=== PATIENT | male | born 1985 | race Caucasian/White ===

== ENCOUNTER 2019-02-17 11:05 | Inpatient (IN) | payer OTHER ==
[~2019-02-17] VITALS: Ht 180.3 cm; Wt 85.3 kg
[2019-02-17 12:30] VITALS: BP 144/73; BMI 26.2
[2019-02-17 13:25] LABS: BASOPHILS 0 % (0-2); EOSINOPHILS 0.4 % (0-7); HEMATOCRIT 43.5 % (42.0-54.0); HEMOGLOBIN 15.7 g/dL (13.5-17.5); LYMPHOCYTES 21.8 % (15-50); MCH 29.7 pg (26.0-34.0); MCHC 36.1 g/dL (31.0-37.0); MCV 82.4 fL (80.0-100.0); MEAN PLATELET VOLUME 10.2 fL (7.4-10.4); MONOCYTES 8.4 % (2-11); NEUTROPHILS 69.4 % (40-80); PLATELET COUNT 158 10x3/uL (130-400); RBC 5.28 10x6/uL (4.20-6.10); RDW 12.4 % (11.5-14.5)
[2019-02-17 13:30] LABS: ALBUMIN 3.9 g/dL (3.4-5.0); ALKALINE PHOSPHATASE 33 U/L (46-116); ALT (SGPT) 30 U/L (10-68); BILIRUBIN - TOTAL 0.72 mg/dL (0.2-1.3); CALC OSMOLALITY 267 mosm/kg (275-300); CALCIUM 8.9 mg/dL (8.5-10.1); CARBON DIOXIDE 25.6 mmol/L (21.0-32.0); CHLORIDE - SERUM 99 mmol/L (98-107); GLUCOSE 100 mg/dL (74-106); POTASSIUM - SERUM 4.1 mmol/L (3.5-5.1); PROTEIN - SERUM 7.2 g/dL (6.4-8.2); SODIUM 134 mmol/L (136-145); UREA NITROGEN 12 mg/dL (7-18); eGFR NON AFRICAN AMERICAN 90 mL/min (90-120)
[2019-02-17 16:31] VITALS: BP 130/63
[2019-02-17 20:00] VITALS: BP 137/51
[2019-02-18] VITALS: BP 114/58
[2019-02-18 04:00] VITALS: BP 112/50
[2019-02-18 05:51] LABS: AMYLASE - SERUM 43 U/L (25-115); CREATINE KINASE 102 UL (21-232); LIPASE 158 U/L (73-393)
[2019-02-18 05:52] LABS: C-REACTIVE PROTEIN < 0.2 mg/dL (0.0-0.9)
--- NOTE | 2019-02-18 07:25 | NUR ---
ROUNDING DONE WITH PATIENT LAYING ON BACK WATCHING TV. DENIES NEEDS AT THIS TIME. ON ROOM AIR. LEFT AC PIV SEEN WITH D 5 1/2 NS INFUSING AT 75 CC/HR. NEED STOOL SAMPLE, PATIENT IS AWARE OF THIS.
[2019-02-18 07:58] VITALS: BP 129/63
--- NOTE | 2019-02-18 10:00 | NUR ---
UP FOR SHOWER, COMPLETE BED LINEN CHANGE DONE.
[2019-02-18 10:56] VITALS: Ht 180.3 cm; Wt 85.3 kg
[2019-02-18 12:09] VITALS: BP 131/69
--- NOTE | 2019-02-18 12:16 | NUR ---
PATIENT IS UP AD JASON, REFUSES SCD.
--- NOTE | 2019-02-18 12:47 | NUR ---
SITTING ON SIDE OF BED EATING LUNCH. DENIES NEEDS AT THIS TIME.
--- NOTE | 2019-02-18 14:50 | NUR ---
UP WALKING HALLWAY FOR DR REYNOSO.
[2019-02-18 15:33] VITALS: BP 128/64
[2019-02-18] MEDS ORDERED: DOXYCYCLINE HY100 M2 PO (15:36)
--- NOTE | 2019-02-18 15:42 | NUR ---
TEMP 100.7, TYLENOL GIVEN.
--- NOTE | 2019-02-18 15:42 | NUR ---
CALLED CHEO IN THE LAB TO HAVE HER COME DRAW THE LYME DX ANTIBODY BEFORE DISCHARGE.
--- NOTE | 2019-02-18 16:38 | NUR ---
VERBAL AND WRITTEN DISCHARGE INSTRUCTIONS GIVEN TO PATIENT AND . SALINE LOCK FROM IV CATH REMOVED WITH TIP INTACT. DISCHARGED HOME VIA WHEELCHAIR.
--- NOTE | 2019-02-18 16:40 | NUR ---
UNABLE TO OBTAIN STOOL PATIENT DID NOT REPORT A BOWEL MOVEMENT THIS SHIFT BEFORE DISCHARGE.
--- NOTE | 2019-02-19 12:44 | MORECARE ---
CASE MANAGEMENT DISCHARGE SUMMARY PATIENT: MARTINA TO UNIT: [id number] ADM DATE: 02/17/19 AGE: 33 : 81 SEX: M ROOM/BED: D.1203 AUTHOR: YANIRA THRASHER PHYSICIAN: REFERRING PHYSICIAN: ESTELA GALLEGO MD DATE OF SERVICE: 02/19/19 Discharge Plan Patient Name: [facility]ARTINA [facility] : 1985 Planned Disposition: Anticipated Discharge Date: Discharge Date: 02/18/2019 Expected LOS: Initial Reviewer: [email or web address] Initial Review Date: 02/17/2019 Generated: 02/19/19 1:44 pm Patient Name: MARTINA TO Page [phone] at 1244 All edits/amendments must be made on the electronic document DICTATION DATE: 02/19/19 1244 [place] DRIVER: MAY 02/19/19 1244 RPT#: [id number] DC DATE:02/18/19 STATUS: DIS IN [facility] [address] [place] [address] END OF REPORT
[2019-02-21 16:09] LABS: ANCA - ANTIMYELOPEROXIDASE <9.0 U/mL (0.0-9.0); ANCA - ANTIPROTEINASE 3 <3.5 U/mL (0.0-3.5); ANCA - ATYPICAL <1:20 titer (Neg:<1:20); ANCA - CYTOPLASMIC <1:20 titer (Neg:<1:20); ANCA - PERINUCLEAR <1:20 titer (Neg:<1:20)
== END 2019-02-18 16:41 | disposition home or self-care (01) | DRG 864 ==
LOC: D.M3 11:05
PROVIDERS: Emergency Medicine; Internal Medicine Pulmonary Disease; ADMIT Family Medicine; ATTEND Family Medicine
DX: R50.9 Fever, unspecified (principal); E87.1 Hypo-osmolality and hyponatremia; R91.8 Other nonspecific abnormal finding of lung field; R53.83 Other fatigue; Z87.01 Personal history of pneumonia (recurrent); R63.4 Abnormal weight loss; Z68.26 Body mass index [BMI] 26.0-26.9, adult

== ENCOUNTER → 2019-02-22 18:33 | Outpatient (CLI) | payer OTHER ==
[2019-02-18 10:56] VITALS: BMI 26.2
[~2019-02-22 18:33] MED LIST: DOXYCYCLINE HY100 M2 PO
[2019-02-23 15:09] LABS: MONO NEGATIVE (NEGATIVE)
[2019-02-24 12:11] LABS: EBV - EARLY ANTIGEN AB IGG <9.0 U/mL (0.0-8.9); EBV - NUCLEAR ANTIGEN AB IGG 83.3 U/mL (0.0-17.9); EBV VIRAL CAPSID AB IGG 81.8 U/mL (0.0-17.9); EBV VIRAL CAPSID AB IGM <36.0 U/mL (0.0-35.9)
[2019-02-24 17:08] LABS: SPE - A/G RATIO 1.2 (0.7-1.7); SPE - ALBUMIN 3.7 g/dL (2.9-4.4); SPE - ALPHA-1 GLOBULIN 0.2 g/dL (0.0-0.4); SPE - ALPHA-2 GLOBULIN 0.8 g/dL (0.4-1.0); SPE - GAMMA GLOBULIN 1.1 g/dL (0.4-1.8); SPE - M-SPIKE Not Observed g/dL (Not Observed); SPE - TOTAL PROTEIN 6.8 g/dL (6.0-8.5)
[2019-03-01 14:11] LABS: EHRLICHIA CHAFF IGG Negative (Neg:<1:64); EHRLICHIA CHAFF IGM Negative (Neg:<1:20); HGE IGG TITER Negative (Neg:<1:64); HGE IGM TITER Negative (Neg:<1:20)
== END | disposition home or self-care (01) ==
LOC: D.LABREF 18:33
PROVIDERS: ATTEND Student in an Organized Health Care Education/Training Program
DX: R50.9 Fever, unspecified (principal)